=== PATIENT | female | born 1970 | race Caucasian/White ===

== ENCOUNTER 2016-10-05 17:11 | Emergency (ER) | payer OTHER ==
[2016-10-05 17:31] VITALS: BP 124/79; PULSE 86; RESP 18; TEMP 99.1; O2SAT 95
[2016-10-05] MEDS ORDERED: TETANUS, DIPHTHERIA TOX (7YR+) 0.5 ML INJ IM ONE (17:42)
--- NOTE | 2016-10-05 17:45 | UCPHY ---
H & P Time Seen by Provider: 10/05/16 17:34 Patient Type: New HPI/ROS: This patient presents with a chief complaint of dog bite to the lower left lip which occurred shortly before arrival. She works in a veterinary office. She is unaware of any involvement in the of the mucosal surface and has no dental complaints. She is unsure about her last tetanus immunization. Smoking Status: Never smoked Physical Exam: This is a well-developed well-nourished female who is in no acute distress. She is alert, lucid and has a normal mental status. Examination of the face reveals a few scratches to the lower lip. There are no adjacent mucosal injuries. Teeth are normal. Constitutional: Initial Vital Signs Temperature (C) 37.3 C 10/05/16 17:22 Heart Rate 86 10/05/16 17:22 Respiratory Rate 18 10/05/16 17:22 Blood Pressure 124/79 H 10/05/16 17:22 O2 Sat (%) 95 10/05/16 17:22 O2 Delivery Mode Room Air Allergies/Adverse Reactions: acetaminophen [From Percocet] Allergy (Verified 11/06/14 11:00) codeine Allergy (Verified 10/02/14 12:13) latex Allergy (Verified 10/02/14 12:13) morphine Allergy (Verified 10/02/14 12:13) oxycodone HCl [From Percocet] Allergy (Verified 11/06/14 11:00) Sulfa (Sulfonamide Antibiotics) Allergy (Verified 10/02/14 12:13) opiods Allergy (Uncoded 11/06/14 11:00) Home Medications: Medication Instructions Recorded NK [No Known Home Meds] 10/02/14 Medical Decision Making ED Course/Re-evaluation: The patient's tetanus status is was updated with a DTaP Departure - Departure Disposition: Home, Routine, Self-Care Clinical Impression: Dog bite of face Qualifiers: Encounter type: initial encounter Qualified Code(s): S01.85XA - Open bite of other part of head, initial encounter; W54.0XXA - Bitten by dog, initial encounter Condition: Good Instructions: Animal Bite (ED) Additional Instructions: Return immediately for any suggestion of infection. Keep the wound clean. Use ice intermittently for the 1st 24 hours. If you notice spreading redness, swelling, increasing pain and tenderness or oje pus you should return immediately since these findings frequently indicate infection. It usually takes 3 days from the time of injury for an infection to begin. Adult Pain & Fever Control: We recommend Acetaminophen (Tylenol) and Ibuprofen (Motrin, Advil) for pain and fever control. When fever is high or pain severe, both drugs can be used at the same time, but at different intervals. Please note the time differences. Your dose is: Acetaminophen [650]mg every 4 to 6 hours ibuprofen [600]mg every [6] hours with food OR naproxen Sodium (Aleve) [440]mg every 12 hours. Note: do not take Acetaminophen with Hydrocodone (Vicodin, Lortab) or Oxycodone (Percocet). These medications also contain Acetaminophen. No more than 3000 mg of Acetaminophen should be taken in 24 hours (for an adult) . The maximal dose of ibuprofen that it is safe in a 24-hour period is 2400 mg. You may take 400 mg every 4 hours, 600 mg every 6 hours or 800 mg every 8 hours safely. - PQRS PQRS Measurement: Not applicable
== END 2016-10-05 18:27 | disposition home or self-care (01) ==
LOC: CED 17:11
PROC: 3E0234Z Introduction of Serum, Toxoid and Vaccine into Muscle, Percutaneous Approach (ICD-10-PCS; principal; 2016-10-05)
DX: S01.85XA Open bite of other part of head, initial encounter (principal); W54.0XXA Bitten by dog, initial encounter; Z88.2 Allergy status to sulfonamides; Z88.5 Allergy status to narcotic agent; Z91.040 Latex allergy status
CPT/HCPCS: 99202-PO; G0463-PO

== ENCOUNTER 2016-10-10 13:35 | Emergency (ER) | payer OTHER ==
[2016-10-10 14:12] VITALS: BP 126/90; PULSE 78; RESP 18; TEMP 98; O2SAT 97
[2016-10-10] MEDS ORDERED: IBUPROFEN 200 MG TAB PO ONE (14:29)
--- NOTE | 2016-10-10 14:54 | UCPHY ---
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 The cat's immunizations are up-to-date. ROS: No bony pain. No numbness or tingling. No difficulty moving the finger since the incident occurred. 5 point ROS is otherwise negative. Past Medical/Surgical History: Otherwise healthy Smoking Status: Never smoked Physical Exam: Physical Exam Vital signs are normal. General: No acute distress Eyes: Pupils equal and react to light. Extraocular motions are intact. Lungs: No respiratory distress. Cardiac: Brisk capillary refill is intact throughout. Skin: No rash or pallor. Extremities: Atraumatic normal except for left 2nd finger. That exam reveals puncture wound to the dorsal and palmar aspect this of phalanx with mild bleeding. No foreign bodies and direct examination. The nail bed injury. No significant bony tenderness. Neuro: Alert and oriented x3 with no sensorimotor deficits. Constitutional: Initial Vital Signs Temperature (C) 36.6 C 10/10/16 14:10 Heart Rate 78 10/10/16 14:10 Respiratory Rate 18 10/10/16 14:10 Blood Pressure 126/90 H 10/10/16 14:10 O2 Sat (%) 97 10/10/16 14:10 O2 Delivery Mode Room Air Allergies/Adverse Reactions: acetaminophen [From Percocet] Allergy (Verified 11/06/14 11:00) codeine Allergy (Verified 10/02/14 12:13) latex Allergy (Verified 10/02/14 12:13) morphine Allergy (Verified 10/02/14 12:13) oxycodone HCl [From Percocet] Allergy (Verified 11/06/14 11:00) Sulfa (Sulfonamide Antibiotics) Allergy (Verified 10/02/14 12:13) opiods Allergy (Uncoded 11/06/14 11:00) Home Medications: Medication Instructions Recorded Amox Tr/K Clav (Augmentin) 500 mg PO Q8 #21 tab 10/10/16 [Augmentin 500/125 MG TAB (*)] MDM/Departure - MDM Diagnostics: finger x-ray: Negative by my interpretation-no fracture. No foreign body. Medications Given: Discontinued Medications Ibuprofen (Motrin) 600 mg PO EDNOW ONE Stop: 10/10/16 14:30 Last Admin: 10/10/16 15:10 Dose: 600 mg ED Course/Re-evaluation: The finger wound is cleaned by our tech and bandages applied. I counseled patient regarding the cat bite. Will treat her empirically with Augmentin to cover infection. No evidence of bony injury or foreign body - Depart Disposition: Home, Routine, Self-Care Clinical Impression: Cat bite of finger Qualifiers: Encounter type: initial encounter Qualified Code(s): S61.259A - Open bite of unspecified finger without damage to nail, initial encounter Condition: Good Instructions: Animal Bite (ED) Additional Instructions: Diagnosis: Cat bite of finger Plan: Clean daily with warm soapy water Augmentin antibiotic Ibuprofen and Tylenol for pain control Return if you develops redness, discharge or other concerns for infection. Prescriptions: Amox Tr/K Clav (Augmentin) [Augmentin 500/125 MG TAB (*)] 500 mg PO Q8 #21 tab Referrals: Koby Alvarado [Primary Care Provider] - As per Instructions - PQRS PQRS Measurement: NA
== END 2016-10-10 15:10 | disposition home or self-care (01) ==
LOC: CED 13:35
DX: S61.251A Open bite of left index finger without damage to nail, initial encounter (principal); W55.01XA Bitten by cat, initial encounter
CPT/HCPCS: 73140-PO; 99214-PO; G0463-PO